=== PATIENT | female | born 1955 | race Caucasian/White ===

== ENCOUNTER 2020-10-22 20:51 | Emergency (ER) | payer SELFPAY ==
[~2020-10-22] VITALS: Ht 162.6 cm; Wt 54.4 kg
[2020-10-22 21:09] VITALS: BP 153/50
[2020-10-22] MEDS ORDERED: ACETAMINOPHEN 325 MG TABLET PO ONE (21:30)
--- NOTE | 2020-10-22 23:17 | NUR ---
Patient eloped from facility. ER MD notified.
== END 2020-10-22 23:18 | disposition left against medical advice (07) ==
LOC: ER 20:51
DX: G89.29 Other chronic pain (principal); B35.1 Tinea unguium; M20.12 Hallux valgus (acquired), left foot; M20.11 Hallux valgus (acquired), right foot; M21.612 Bunion of left foot; M21.611 Bunion of right foot; E11.9 Type 2 diabetes mellitus without complications; F10.10 Alcohol abuse, uncomplicated; Y90.9 Presence of alcohol in blood, level not specified; Z59.0 Homelessness